=== PATIENT | female | born 1975 | race Caucasian/White ===

== ENCOUNTER 2025-01-31 14:53 | Emergency (ER) | payer BC, SELFPAY ==
--- OUTSIDE RECORDS SUMMARY | 2025-01-31 14:57 | XMS REPORT | Continuity of Care Document ---
Author Name Unknown Address [address] [facility] [address] [place] [address] Organization [facility] Address [address] [facility] [address] [place] [address] Care Team Providers Care Flatwork Catcher Name Role Phone Edna Contreras Primary Care Physician [phone] ANDREW CARTWRIGHT Attending Clinician Unavailable Andrew Cartwright MD Attending Clinician [phone] Unknown, Attending Attending Clinician Unavailab CONCHITA Sharif Attending Clinician Unavailable Conchita Augustin MD Attending Clinician [phone] Nurse, [facility] Attending Clinician Un available Jeromy Bedoya Attending Clinician Provider, [facility] Attending Clinician Unavailable JEROMY RICCI Attending Clinician Unavailab le Doctor Unassigned, [place] Attending Clinician U navailCONCHITA Hong Admitting Clinician Unavailable Payers Payer Name Policy Type Policy Number Effective Date Expirati on Date Source [facility] - OUT OF STATE [id number] 2021 00:00:00 Problems Condition Name Condition Details Condition Category Status Onset Date Resolution Date Last Treatment Date Treating Clinician Comments Source No known active problems No known active problems Disease [facility] Allergies, Adverse Reactions, Alerts Allergy Name Allergy Type Status Severity Reaction(s) Onset Date Inactive Date Treating Clinician Comments Source NO KNOWN ALLERGIE S Drug Class Active [facility] Social History Social Habit Start Date Stop Date Quantity Comments Source Exposure to SARS-CoV-2 (event) 2022-08-29 00:00:00 2022-09-08 10:59:00 Not sure [facility] Sex Assigned At 1975 00:00:00 1975 00:00:00 [facility] Smoking Status Start Date Stop Date Source Tobacco smoking consumption unknown [facility] Medications Ordered Medication Name Filled Medication Name Start Date Stop Date Current Medication? Ordering Clinician Indication Dosage Frequency Signature (SIG) Comments Components Source atenolol 100 mg tablet 01-03 00:00: 00 Yes 1mg [facility] metformin ER 500 mg 24 hr tablet,exte nded release (gastric retention) 01-03 00:00: 00 Yes 2mg [facility] atorvastati n 40 mg tablet 01-03 00:00: 00 Yes 1mg [facility] atenolol 100 mg tablet 10-25 00:00: 00 Yes 1mg [facility] metformin ER 500 mg 24 hr tablet,exte nded release (gastric retention) 10-25 00:00: 00 Yes 2mg [facility] atorvastati n 40 mg tablet 10-25 00:00: 00 Yes 1mg [facility] atenolol 100 mg tablet 09-13 00:00: 00 Yes 1mg [facility] metformin ER 500 mg 24 hr tablet,exte nded release (gastric retention) 2023-05 00:00: 00 Yes 2mg [facility] atorvastati n 40 mg tablet 2023-05 00:00: 00 Yes 1mg [facility] metformin ER 1,000 mg 24 hr tablet,exte nded release (gastric reten.) 2023-05 00:00: 00 Yes 1mg [facility] atorvastati n 40 mg tablet 2023-05 00:00: 00 Yes 1mg [facility] clotrimazol e 1 % topical cream 2023-05 00:00: 00 Yes 1% [facility] atenolol 100 mg tablet 2023-05 00:00: 00 Yes 1mg [facility] TAKE DIRECTED BY PACKAGE INSTRUCTION S. 2022-05 00:00: 00 Yes [facility] TAKE ONE (1) TABLET(S) BY MOUTH ONCE A DAY WITH FOOD FOR 7 DAYS, THEN TAKE ONCE A DAY NEEDED. 2022-05 00:00: 00 Yes [facility] TAKE ONE (1) TABLET(S) BY MOUTH ONCE A DAY. 2022-05 00:00: 00 Yes [facility] TAKE ONE (1) TABLET(S) BY MOUTH ONCE A DAY AT BEDTIME FOR 7 TO 10 DAYS, THEN TAKE ONE (1) TAB AT BEDTIME NEEDED. 2022-05 00:00: 00 Yes [facility] ketorolac (TORADOL) injection 30 mg 09-08 17:30: 00 09-08 16:26 :00 No [id number] 30mg [facility] TAKE ONE (1) TABLET(S) BY MOUTH EVERY SIX HOURS NEEDED FOR PAIN. 09-08 00:00: 00 Yes [facility] TAKE ONE (1) CAPSULE(S) BY MOUTH THREE TIMES A DAY NEEDED FOR MUSCLE SPASMS. 09-08 00:00: 00 Yes [facility] tiZANidine 2 mg capsule 09-08 00:00: 00 Yes [id number] 2mg Take 1 capsule by mouth 3 (three) times daily as needed for Muscle Spasms. [facility] ibuprofen 600 mg tablet 09-08 00:00: 00 Yes [id number] 4 600mg Take 1 tablet by mouth every 6 (six) hours as needed for Pain (scale 1-3) or Pain (scale 4-6). [facility] atenoloL 100 mg tablet 07-07 00:00: 00 Yes 100mg Take 1 tablet by mouth in the morning. [facility] ketorolac (TORADOL) injection 30 mg 12-11 04:00: 00 12-11 03:10 :00 No 30mg 30 mg, Slow IV Push, ONCE, 1 dose, On Mon12/10/21 at 2300, Routine [facility] ketorolac 10 mg tablet 12-11 00:00: 00 Yes [id number] 10mg Take 1 tablet by mouth every 6 (six) hours as needed for Pain (scale 7-10). [facility] methocarbam oL 750 mg tablet 12-11 00:00: 00 Yes [id number] 750mg Take 1 tablet by mouth every 6 (six) hours as needed for Pain (scale 7-10) (MUSCLE SPASM). [facility] No known medications 12-10 21:36: 36 No No known medication s [facility] No known medications 12-10 19:52: 00 No No known medication s [facility] Vital Signs Vital Name Observation Time Observation Value Comments S rena Body weight 2022-09-08 16:10:00 110.819 kg [facility] BMI 2022-09-08 16:10:00 37.15 kg/m2 [facility] Oxygen saturation in Arterial blood by Pulse oximetry 2022-09-08 16:10:00 98 /min [facility] Systolic blood pressure 2022-09-08 16:10:00 147 mm[Hg] [facility] Diastolic blood pressure 2022-09-08 16:10:00 92 mm[Hg] [facility] Heart rate 2022-09-08 16:10:00 82 /min [facility] Body temperature 2022-09-08 16:10:00 36.89 [facility] Respiratory rate 2022-09-08 16:10:00 18 /min [facility] Body height 2022-09-08 16:10:00 172.7 cm [facility] Systolic blood pressure 2021-12-11 05:00:00 143 mm[Hg] [facility] Diastolic blood pressure 2021-12-11 05:00:00 95 mm[Hg] [facility] acute hospital Heart rate 2021-12-11 05:00:00 76 /min [facility] Respiratory rate 2021-12-11 05:00:00 18 /min [facility] Oxygen saturation in Arterial blood by Pulse oximetry 2021-12-11 05:00:00 99 /min [facility] Body temperature 2021-12-11 01:29:00 36.83 Man[facility] Body weight 2021-12-11 01:29:00 106.142 kg [facility] BMI 2021-12-11 01:29:00 35.58 kg/m2 [facility] Systolic blood pressure 2021-12-11 01:29:00 147 mm[Hg] [facility] Diastolic blood pressure 2021-12-11 01:29:00 89 mm[Hg] [facility] hospital Heart rate 2021-12-11 01:29:00 98 /min [facility] Body temperature 2021-12-11 01:29:00 37.39 [facility] Respiratory rate 2021-12-11 01:29:00 18 /min [facility] Body height 2021-12-11 01:29:00 172.7 cm [facility] Body weight 2021-12-11 01:29:00 106.232 kg [facility] BMI 2021-12-11 01:29:00 35.61 kg/m2 [facility] Oxygen saturation in Arterial blood by Pulse oximetry 2021-12-11 01:29:00 99 /min [facility] BP Systolic 2025-01-03 16:24:00 133 mm[Hg] Step hen F Frandy BP Diastolic 2025-01-03 16:24:00 86 mm[Hg] Jul[place] phen F Frandy Weight Measured 2025-01-03 16:24:00 233.00 pounds Den F Frandy Height Measured 2025-01-03 16:24:00 68.19 inches Den F Frandy Body Temperature 2025-01-03 16:24:00 96.40 degrees Den F Frandy Heart Rate 2025-01-03 16:24:00 89.00 /min Susana en F Frandy Respiratory Rate 2025-01-03 16:24:00 18.00 /min Den F Frandy BP Systolic 2024-10-25 10:52:00 133 mm[Hg] Step hen F Frandy BP Diastolic 2024-10-25 10:52:00 79 mm[Hg] Julito phen F Frandy Weight Measured 2024-10-25 10:52:00 236.00 pounds Den F Frandy Height Measured 2024-10-25 10:52:00 68.19 inches Den F Frandy Body Temperature 2024-10-25 10:52:00 97.90 degrees Den F Frandy Heart Rate 2024-10-25 10:52:00 73.00 /min Susana en F Frandy Respiratory Rate 2024-10-25 10:52:00 18.00 /min Den F Frandy BP Systolic 2024-10-25 10:47:00 133 mm[Hg] Step hen F Frandy BP Diastolic 2024-10-25 10:47:00 79 mm[Hg] Julito phen F Frandy Weight Measured 2024-10-25 10:47:00 236.00 pounds Den F Frandy Height Measured 2024-10-25 10:47:00 68.19 inches Den F Frandy Body Temperature 2024-10-25 10:47:00 97.90 degrees Den F Frandy Heart Rate 2024-10-25 10:47:00 73.00 /min Susana en F Frandy Respiratory Rate 2024-10-25 10:47:00 18.00 /min Den F Frandy BP Systolic 2024-04-22 10:23:00 154 mm[Hg] Step hen F Frandy BP Diastolic 2024-04-22 10:23:00 81 mm[Hg] Julito phen F Frandy Weight Measured 2024-04-22 10:23:00 237.80 pounds Den F Frandy Height Measured 2024-04-22 10:23:00 68.19 inches Den F Frandy Body Temperature 2024-04-22 10:23:00 97.80 degrees Den F Frandy Heart Rate 2024-04-22 10:23:00 56.00 /min Susana en F Frandy Respiratory Rate 2024-04-22 10:23:00 18.00 /min Den F Frandy BP Systolic 2024-03-22 15:23:00 131 mm[Hg] Step hen F Frandy BP Diastolic 2024-03-22 15:23:00 83 mm[Hg] Jul[place] phen F Frandy Weight Measured 2024-03-22 15:23:00 242.60 pounds Den F Frandy Height Measured 2024-03-22 15:23:00 68.19 inches [facility] Body Temperature 2024-03-22 15:23:00 97.20 degrees Den Wise Heart Rate 2024-03-22 15:23:00 97.00 /min Susana en F Frandy Respiratory Rate 2024-03-22 15:23:00 18.00 /min Denmarija Wise Heart Rate 2024-03-18 14:23:00 75.00 /min Susana en F Frandy Respiratory Rate 2024-03-18 14:23:00 18.00 /min [facility] BP Systolic 2024-03-18 14:23:00 134 mm[Hg] Step hen Caridad Wise BP Diastolic 2024-03-18 14:23:00 63 mm[Hg] Julito Wise Weight Measured 2024-03-18 14:23:00 243.80 pounds Den Wise Height Measured 2024-03-18 14:23:00 68.19 inches [facility] Body Temperature 2024-03-18 14:23:00 98.50 degrees [facility] Procedures Procedure Date / Time Performed Performing Clinicia n Source EKG-12 LEAD 2021-12-11 05:17:06 Conchita Augustin [facility] MAGNESIUM 2021-12-11 03:13:00 Conchita Augustin [facility] TROPONIN I 2021-12-11 03:13:00 Conchita Augustin [facility] COMP. METABOLIC PANEL (01724) 2021-12-11 03:13:00 Conchita Augustin [facility] CBC WITH DIFF 2021-12-11 03:13:00 Conchita Augustin [facility] XR CHEST 1 VW 2021-12-11 02:18:53 Conchita Augustin [facility] CONSENT/REFUSAL FOR DIAGNOSIS AND TREATMENT 2021-12-11 00:48:06 Doctor Unassigned, [place] [facility] ASSIGNMENT OF BENEFITS 2021-12-11 00:47:56 Docto r Unassigned, [place] [facility] Encounters Start Date/Time End Date/Time Encounter Type Admission Type Attending [facility] Care Department Encounter ID Source 2025-01-31 13:28:44 2025-01-31 13:28:44 Outpatient SFA SFA [id number] [facility] 2025-01-03 16:21:34 2025-01-03 16:21:34 Outpatient SFA SFA [id number] [facility] 2025-01-03 00:00:00 2025-01-03 00:00:00 Outpatient Visit SFA [id number] Den Wise 2024-10-25 00:00:00 2024-10-25 00:00:00 Outpatient Visit SFA [id number] Den [facility] 2024-09-06 15:13:51 2024-09-06 15:13:51 Outpatient SFA SFA [id number] Den Wise 2024-05-02 15:58:42 2024-05-02 15:58:42 Outpatient SFA SFA [id number] [facility] 2024-04-22 09:58:28 2024-04-22 09:58:28 Outpatient SFA [id number] [id number] Den Wise 2024-04-22 00:00:00 2024-04-22 00:00:00 Outpatient Visit SFA [id number] Den Wise 2024-03-22 15:19:13 2024-03-22 15:19:13 Outpatient SFA SFA [id number] Den Wise 2024-03-22 00:00:00 2024-03-22 00:00:00 Outpatient Visit SFA [id number] Den Wise 2024-03-19 08:00:55 2024-03-19 08:00:55 Outpatient SFA SFA [id number] Den Wise 2024-03-18 13:57:38 2024-03-18 13:57:38 Outpatient SFA [id number] Den Wise 2024-03-18 00:00:00 2024-03-18 00:00:00 Outpatient Visit [id number] Den Wise 2023-07-20 13:39:13 2023-07-20 13:39:13 Outpatient SFA [id number] Den Wise 2022-09-08 11:00:00 2022-09-08 11:25:08 Outpatient R ANDREW CARTWRIGHT [facility] [id number] [facility] 2022-09-08 11:00:00 2022-09-08 11:25:08 Urgent Care Andrew Cartwright Unknown, Attending [facility] [id number] [facility] 2021-12-10 20:22:00 2021-12-11 00:19:00 Emergency X CONCHITA AUGUSTIN [facility] ERT [id number] [facility] 2021-12-10 20:22:00 2021-12-11 00:19:00 Emergency Conchita Augustin S [facility] [id number] [facility] 2021-12-10 20:00:00 2021-12-10 20:20:00 Nurse Visit Nurse, [facility] Jeromy Ricci [facility] [id number] [facility] 2021-12-10 19:40:00 2021-12-10 20:00:00 Urgent Care Provider, [facility] Jeromy Ricci [facility] [id number] [facility] 2021-12-10 19:40:00 2021-12-10 19:40:00 Outpatient R JEROMY RICCI [facility] [id number] [facility] 2021-12-10 00:00:00 2021-12-10 00:00:00 Orders Only Doctor Unassigned, [place] [facility] [id number] [facility] Results Test Description Test Time Test Comments Results Result Co mments Source Den WiseCOMPREHENSIVE METABOLIC [id number] 00:00:00* Test Item Value Reference Range Interpretation Comme nts GLUCOSE (test code = 2217) 333 MG/DL BUN (test code = 2208) 9 MG/DL CREATININE (test code = 2214) 0.39 MG/DL eGFR (2020 CKD-EPI) (test code = 49244) 124 ML/MIN/1.73 CALC BUN/CREAT (test code = 2235) 23 RATIO SODIUM (test code = 2231) 132 MEQ/L POTASSIUM (test code = 2228) 4.5 MEQ/L CHLORIDE (test code = 2215) 94 MEQ/L CARBON DIOXIDE (test code = 2206) 25 MEQ/L CALCIUM (test code = 2209) 9.7 MG/DL PROTEIN, TOTAL (test code = 2229) 7.4 G/DL ALBUMIN (test code = 2201) 4.2 G/DL CALC GLOBULIN (test code = 2240) 3.2 G/DL CALC A/G RATIO (test code = 2234) 1.3 RATIO BILIRUBIN, TOTAL (test code = 2207) 0.3 MG/DL ALKALINE PHOSPHATASE (test code = 2204) 109 U/L AST (test code = 2218) 25 U/L ALT (test code = 2219) 30 U/L Den WiseLIPID [id number] 00:00:00* Test Item Value Reference Range Interpretation Comme nts CHOLESTEROL (test code = 2210) 215 MG/DL TRIGLYCERIDES (test code = 2232) 250 MG/DL HDL CHOLESTEROL (test code = 2220) 31 MG/DL CALC LDL CHOL (test code = 2237) 146 MG/DL RISK RATIO LDL/HDL (test cod e = 2238) 4.71 RATIO Den WiseHEMOGLOBIN [id number] 00:00:00* Test Item Value Reference Range Interpretation Comme nts HEMOGLOBIN A1c (test code = 10274) 11.4 % Den WiseCOMPREHENSIVE METABOLIC [id number] 00:00:00* Test Item Value Reference Range Interpretation Comme nts GLUCOSE (test code = 2217) 333 MG/DL BUN (test code = 2208) 9 MG/DL CREATININE (test code = 2214) 0.39 MG/DL eGFR (2020 CKD-EPI) (test code = 98420) 124 ML/MIN/1.73 CALC BUN/CREAT (test code = 2235) 23 RATIO SODIUM (test code = 2231) 132 MEQ/L POTASSIUM (test code = 2228) 4.5 MEQ/L CHLORIDE (test code = 2215) 94 MEQ/L CARBON DIOXIDE (test code = 2206) 25 MEQ/L CALCIUM (test code = 2209) 9.7 MG/DL PROTEIN, TOTAL (test code = 2229) 7.4 G/DL ALBUMIN (test code = 2201) 4.2 G/DL CALC GLOBULIN (test code = 2240) 3.2 G/DL CALC A/G RATIO (test code = 2234) 1.3 RATIO BILIRUBIN, TOTAL (test code = 2207) 0.3 MG/DL ALKALINE PHOSPHATASE (test code = 2204) 109 U/L AST (test code = 2218) 25 U/L ALT (test code = 2219) 30 U/L Den WiseLIPID [id number] 00:00:00* Test Item Value Reference Range Interpretation Comme nts CHOLESTEROL (test code = 2210) 215 MG/DL TRIGLYCERIDES (test code = 2232) 250 MG/DL HDL CHOLESTEROL (test code = 2220) 31 MG/DL CALC LDL CHOL (test code = 2237) 146 MG/DL RISK RATIO LDL/HDL (test cod e = 2238) 4.71 RATIO Den F AustinHEMOGLOBIN [id number] 00:00:00* Test Item Value Reference Range Interpretation Comme nts HEMOGLOBIN A1c (test code = 59735) 11.4 % Den Mclean AustinCOMPREHENSIVE METABOLIC [id number] 00:00:00* Test Item Value Reference Range Interpretation Comme nts GLUCOSE (test code = 2217) 333 MG/DL BUN (test code = 2208) 9 MG/DL CREATININE (test code = 2214) 0.39 MG/DL eGFR (2020 CKD-EPI) (test code = 05317) 124 ML/MIN/1.73 CALC BUN/CREAT (test code = 2235) 23 RATIO SODIUM (test code = 2231) 132 MEQ/L POTASSIUM (test code = 2228) 4.5 MEQ/L CHLORIDE (test code = 2215) 94 MEQ/L CARBON DIOXIDE (test code = 2206) 25 MEQ/L CALCIUM (test code = 2209) 9.7 MG/DL PROTEIN, TOTAL (test code = 2229) 7.4 G/DL ALBUMIN (test code = 2201) 4.2 G/DL CALC GLOBULIN (test code = 2240) 3.2 G/DL CALC A/G RATIO (test code = 2234) 1.3 RATIO BILIRUBIN, TOTAL (test code = 2207) 0.3 MG/DL ALKALINE PHOSPHATASE (test code = 2204) 109 U/L AST (test code = 2218) 25 U/L ALT (test code = 2219) 30 U/L Den Mclean AustinLIPID [id number] 00:00:00* Test Item Value Reference Range Interpretation Comme nts CHOLESTEROL (test code = 2210) 215 MG/DL TRIGLYCERIDES (test code = 2232) 250 MG/DL HDL CHOLESTEROL (test code = 2220) 31 MG/DL CALC LDL CHOL (test code = 2237) 146 MG/DL RISK RATIO LDL/HDL (test cod e = 2238) 4.71 RATIO Den Mclean AustinHEMOGLOBIN [id number] 00:00:00* Test Item Value Reference Range Interpretation Comme nts HEMOGLOBIN A1c (test code = 98238) 11.4 % Den Mclean AustinCOMPREHENSIVE METABOLIC [id number] 00:00:00* Test Item Value Reference Range Interpretation Comme nts GLUCOSE (test code = 2217) 333 MG/DL BUN (test code = 2208) 9 MG/DL CREATININE (test code = 2214) 0.39 MG/DL eGFR (2020 CKD-EPI) (test code = 91998) 124 ML/MIN/1.73 CALC BUN/CREAT (test code = 2235) 23 RATIO SODIUM (test code = 2231) 132 MEQ/L POTASSIUM (test code = 2228) 4.5 MEQ/L CHLORIDE (test code = 2215) 94 MEQ/L CARBON DIOXIDE (test code = 2206) 25 MEQ/L CALCIUM (test code = 2209) 9.7 MG/DL PROTEIN, TOTAL (test code = 2229) 7.4 G/DL ALBUMIN (test code = 2201) 4.2 G/DL CALC GLOBULIN (test code = 2240) 3.2 G/DL CALC A/G RATIO (test code = 2234) 1.3 RATIO BILIRUBIN, TOTAL (test code = 2207) 0.3 MG/DL ALKALINE PHOSPHATASE (test code = 2204) 109 U/L AST (test code = 2218) 25 U/L ALT (test code = 2219) 30 U/L Den WiseLIPID [id number] 00:00:00* Test Item Value Reference Range Interpretation Comme nts CHOLESTEROL (test code = 2210) 215 MG/DL TRIGLYCERIDES (test code = 2232) 250 MG/DL HDL CHOLESTEROL (test code = 2220) 31 MG/DL CALC LDL CHOL (test code = 2237) 146 MG/DL RISK RATIO LDL/HDL (test cod e = 2238) 4.71 RATIO Den Mclean FrandyTROPONIN [id number] 03:51:49* Test Item Value Reference Range Interpretation Comments TROPONIN I (test code = 5440527495) 0.002 ng/mL See_Comment [Automated message] The system which generated this result transmitted reference range: <=0.034. The reference range was not used to interpret this result as normal/abnormal. DOTTIE (test code = DOTTIE) Reference (Normal) Range (defined by the 99th percentile reference limit): <= 0.034 ng/mL Note: Cardiac troponin begins to rise 3-4 hours after the onset of ischemia. Repeat in 4-6 hours if the sample was drawn within 3-4 hours of the onset of the symptom and found normal. Diagnosis of myocardial injury is made with acute changes in cTn concentrations with at least one serial sample above the 99th percentile upper reference limit (URL), taken together with the patient's clinical presentation. Biotin has been reported to cause a negative bias, interpret results relative to patient's use of biotin. Lab Interpretation (test code = 33179-4) [facility] 03:42:05* Test Item Value Reference Range Interpretation Comme nts MAGNESIUM (test code = 1128600624) 1.5 mg/dL 1.7-2.4 L Lab Interpretation (test cod e = 08759-6) [facility] (30724)2021-12-11 03:41:45* Test Item Value Reference Range Interpretation Comme nts NA (test code = 9667742802) 138 mmol/L 135-145 K (test code = 4946124537) 4.1 mmol/L 3.5-5 CL (test code = 1125291116) 100 mmol/L 98-108 CO2 TOTAL (test code = 0674506077) 27 mmol/L 23-31 AGAP (test code = 2644438185) 2-16 BUN (test code = 6950231855) 10 mg/dL 7-23 GLUCOSE (test code = 6373720944) 106 mg/dL 70-110 CREATININE (test code = 2924657151) 0.40 mg/dL 0.5-1.04 L TOTAL BILI (test code = 2502304922) 0.4 mg/dL 0.1-1.1 CALCIUM (test code = 6293783877) 9.8 mg/dL 8.6-10.6 T PROTEIN (test code = 7061434498) 7.4 g/dL 6.3-8.2 ALBUMIN (test code = 8454350629) 4.2 g/dL 3.5-5 ALK PHOS (test code = 7505048034) 74 U/L 34-122 ALTv (test code = 1742-6) 20 U/L 5-35 AST(SGOT) (test code = 5372895227) 24 U/L 13-40 eGFR (test code = 0282614115) mL/min/1.73m2 DOTTIE (test code = DOTTIE) Association of Glomerular Filtration Rate (GFR) and Staging of Kidney Disease* + --+ --+ ------+| GFR (mL/min/1.73 m2) ?| With Kidney Damage ?| ?Without Kidney Damage+ --------+ --------+ +| ?>90 ?| ?Stage one ?| ? Normal ?+ ---+ ---+ -------+| ?60-89 ?| ?Stage two ?| ? Decreased GFR ? + --+ --+ ------+| ?30-59 ?| ?Stage three ?| ? Stage three ? + --+ --+ ------+| ?15-29 ?| ?Stage four ? | ? Stage four ?+ ---+ ---+ -------+| ?<15 (or dialysis) ? ?| ?Stage five ? | ? Stage five ?+ ---+ ---+ -------+ *Each stage assumes the associated GFR level has been in effect for at least three months. ?Stages 1 to 5, with or without kidney disease, indicate chronic kidney disease. Notes: Determination of stages one and two (with eGFR >59mL/min/1.73 m2) requires estimation of kidney damage for at least three months as defined by structural or functional abnormalities of the kidney, manifested by either:Pathological abnormalities or Markers of kidney damage (including abnormalities in the composition of the blood or urine or abnormalities in imaging tests). Lab Interpretation (test code = 00109-5) Abnormal [facility] WITH [id number] 03:31:39* Test Item Value Reference Range Interpretation Comme nts WBC (test code = 6690-2) See_Comment [Automated [employer]] The system which generated this result transmitted reference range: 4.30 - 11.10 10*3/?L. The reference range was not used to interpret this result as normal/abnormal. RBC (test code = 789-8) See_Comment [Automated [employer]] The system which generated this result transmitted reference range: 3.93 - 5.25 10*6/?L. The reference range was not used to interpret this result as normal/abnormal. HGB (test code = 718-7) 14.1 g/dL 11.6-15 HCT (test code = 4544-3) 40.7 % 35.7-45.2 MCV (test code = 787-2) 85.9 fL 80.6-95.5 MCH (test code = 785-6) 29.7 pg 25.9-32.8 MCHC (test code = 786-4) 34.6 g/dL 31.6-35.1 RDW-SD (test code = 74721-9) 39.5 fL 39-49.9 RDW-CV (test code = 788-0) 12.6 % 12-15.5 PLT (test code = 777-3) See_Comment [Automated messa ge] The system which generated this result transmitted reference range: 166 - 358 10*3/?L. The reference range was not used to interpret this result as normal/abnormal. MPV (test code = 08628-9) 12.6 fL 9.5-12.9 NRBC/100 WBC (test code = 7413301844) See_Comment [Automated [employer] ssage] The system which generated this result transmitted reference range: 0.0 - 10.0 /100 WBCs. The reference range was not used to interpret this result as normal/abnormal. NRBC x10^3 (test code = 6725423124) See_Comment [Automated messa ge] The system which generated this result transmitted reference range: 10*3/?L. The reference range was not used to interpret this result as normal/abnormal. GRAN MAT (NEUT) % (test code = 770-8) 57.8 % IMM GRAN % (test code = [id number]) 0.30 % LYMPH % (test code = 736-9) 34.1 % MONO % (test code = 5905-5) 6.0 % EOS % (test code = 713-8) 1.4 % BASO % (test code = 706-2) 0.4 % GRAN MAT x10^3(ANC) (test code = [id number]) 5.61 10*3/uL 1.88-7.09 IMM GRAN x10^3 (test code = [id number]) 0.03 10*3/uL 0-0.06 LYMPH x10^3 (test code = 731-0) 3.31 10*3/uL 1.32-3.29 H MONO x10^3 (test code = 742-7) 0.58 10*3/uL 0.33-0.92 EOS x10^3 (test code = 711-2) 0.14 10*3/uL 0.03-0.39 BASO x10^3 (test code = 704-7) 0.04 10*3/uL 0.01-0.07 Lab Interpretation (test code = 89636-0) Abnormal [facility] Notes Date/Time Note Provider Source [facility]2025-06-13 00:00:00 [facility]2024-12-09 00:00:00 [facility]2024-11-08 00:00:00 [facility]2024-11-04 00:00:00 [facility]"
--- NOTE | 2025-01-31 15:58 | RAD REPORT ---
EXAM: Knee Right 3 View INDICATION: PAIN COMPARISON: None FINDINGS: No acute fracture. No significant knee effusion. Slight medial lateral compartment narrowing with small marginal osteophytes. Mild patellofemoral comp artment spurring. Enthesophytes at the patella. Other: N/A IMPRESSION: No acute osseous abnormality involving the imaged knee.
--- NOTE | 2025-01-31 16:05 | EDPHYS ---
Physician Documentation [facility] Name: Rio Espinosa Age: 49 yrs Sex: Female : 1975 Arrival Date: 01/31/2025 Time: 14:53 Bed 17 Private MD: ED Physician Mj Christine HPI: 01/31 15:22 This 49 yrs old Female presents to ER via Unassigned with complaints of Knee Injury - ms3 RT. 15:22 49-year-old female with past medical history of diabetes, hypertension presents to the [facility] emergency department for right knee pain that occurred after lifting a 5 gallon bucket and twisting. Patient states she cannot put pressure on her knee as it is painful. Patient denies pain without putting pressure on it. Patient denies alleviating factors. Patient states prior to coming to the emergency department saw her primary care physician who sent her to the emergency department.. 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 - Infectious Disease History:: Denies. - Social history:: Smoking status: Patient reports the use of cigarette tobacco products, smokes one-half pack cigarettes per day, Reported history of juuling and/or vaping. ROS: 15:22 Constitutional: Negative for fever, and chills. Cardiovascular: Negative for chest ms3 pain, and palpitations. Respiratory: Negative for shortness of breath, cough, wheezing, and pleuritic chest pain, Abdomen/GI: Negative for abdominal pain, nausea, vomiting, diarrhea, and constipation, 15:22 MS/extremity: Positive for pain, of the Right knee, Exam: 15:22 Constitutional: This is a well developed, well nourished patient who is awake, alert, ms3 and in no acute distress. Cardiovascular: Regular rate and rhythm with a normal S1 and S2. No gallops, murmurs, or rubs. Normal PMI, no JVD. No pulse deficits. Respiratory: Lungs have equal breath sounds bilaterally, clear to auscultation and percussion. No rales, rhonchi or wheezes noted. No increased work of breathing, no retractions or nasal flaring. Abdomen/GI: Soft, non-tender, with normal bowel sounds. No distension or tympany. No guarding or rebound. No evidence of tenderness throughout. Skin: Warm, dry with normal turgor. Normal color with no rashes, no lesions, and no evidence of cellulitis. 15:22 Musculoskeletal/extremity: Extremities: noted in the Right knee: pain, There is no evidence of decreased ROM, swelling, tenderness, Vital Signs: 15:26 BP 120 / 66; Pulse 81; Resp 16; Temp 98.2; Pulse Ox 98% on R/A; Weight 105.69 kg; dd2 Height 5 ft. 8 in. ; Pain 5/10; 16:10 BP 122 / 64; Pulse 82; Resp 10; Temp 98.2; Pulse Ox 100% ; kj2 15:26 Body Mass Index 35.43 (105.69 kg, 172.72 cm) dd2 15:26 Pain Scale: Adult dd2 MDM: 15:21 Medical Screening Exam initiated ms3 15:22 Differential diagnosis: closed fracture, contusion, Ligamentous injury. ms3 16:05 Data reviewed: vital signs, nurses notes, radiologic studies, and as a result, I will ms3 discharge patient. I considered the following discharge prescriptions or medication management in the emergency department See prescription. Independent interpretation of the following test(s) in the Emergency Department X-Ray: My interpretation is Right knee x-ray images reviewed by me do not reveal fracture. Counseling: I had a detailed discussion with the patient and/or guardian regarding the historical points, exam findings, and any diagnostic results supporting the discharge/admit diagnosis, radiology results, the need for outpatient follow up, to return to the emergency department if symptoms worsen or persist or if there are any questions or concerns that arise at home. Special discussion: I discussed with the patient/guardian in detail that at this point there is no indication for admission to the hospital. It is understood, however, that if the symptoms persist or worsen the patient needs to return immediately for re-evaluation. ED course: Discussed x-ray findings with patient. Patient to follow-up with Dr. Montero in 2 to 3 days. All questions were answered. Return precautions were discussed include worsening symptoms, or any other concerns. On reevaluation patient is alert and oriented x 4, no apparent distress, nontoxic-appearing, speaking full sentences. No signs of compartment syndrome present. 01/31 15:21 Order name: Knee Right 3 View XRAY; Complete Time: 15:59 ms3 01/31 15:21 Order name: Knee Immobilizer ms3 01/31 15:21 Order name: Crutches ms3 Administered Medications: No medications were administered Disposition Summary: 01/31/25 16:04 Discharge Ordered Notes: Location: Home ms3 Condition: Stable ms3 Diagnosis - Pain in right knee ms3 Followup: ms3 - With: Vinny Montero MD - When: 2 - 3 days - Reason: Recheck today's complaints Discharge Instructions: - Discharge Summary Sheet ms3 - Acute Knee Pain, Adult ms3 Forms: - Medication Reconciliation Form ms3 - Antibiotic Education ms3 - Prescription Opioid Use ms3 - Patient Portal Instructions ms3 - Leadership Thank You Letter ms3 Prescriptions: - Ibuprofen 600 mg Oral Tablet - take 1 tablet ORAL route every 6 hours As needed take with food; 30 tablet; ms3 Refills: 0, Product Selection Permitted Signatures: Dispatcher [employer] EDMS Mj Christine, DO ms3 Chayito Goodrich, RN RN kj2 ROBERT PETERSON RN RN dd2 Corrections: (The following items were deleted from the chart) 15:22 15:22 Knee Right 3 View+RAD.RAD.BRZ ordered. EDMS EDMS
--- NOTE | 2025-01-31 16:05 | ER ---
Nurse's Notes [facility] Name: Rio Espinosa Age: 49 yrs Sex: Female : 1975 Arrival Date: 01/31/2025 Time: 14:53 Bed 17 Private MD: Diagnosis: Pain in right knee Presentation: 01/31 15:26 Chief complaint: Patient states: SHE WAS PICKING UP A CASE OF PAINT, FELT RT KNEE dd2 "SNAP" AND UNABLE TO PUT PRESSURE ON RT LEG AND RT FOOT TINGLING. OCCURRED AT APPROX 11AM. Coronavirus screen: At this time, the client does not indicate any symptoms associated with coronavirus-19. Ebola Screen: No symptoms or risks identified at this time. Initial Sepsis Screen: Does the patient meet any 2 criteria? No. Patient's initial sepsis screen is negative. Does the patient have a suspected source of infection? No. Patient's initial sepsis screen is negative. Risk Assessment: Do you want to hurt yourself or someone else? Patient reports no desire to harm self or others. Onset of symptoms was January 31, 2025 at 11:00. 15:26 Method Of Arrival: Wheelchair dd2 15:26 Acuity: MARTÍN 4 dd2 Triage Assessment: 15:28 General: Appears in no apparent distress. uncomfortable, Behavior is calm, cooperative, dd2 appropriate for age. Pain: Complains of pain in right knee. Musculoskeletal: Reports pain in right knee. 16:20 Injury Description: right knee. 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 - Infectious Disease History:: Denies. - Social history:: Smoking status: Patient reports the use of cigarette tobacco products, smokes one-half pack cigarettes per day, Reported history of juuling and/or vaping. Screenin:04 [facility] ED Fall Risk Assessment (Adult) History of falling in the last 3 months, kj2 including since admission No falls in past 3 months (0 pts) Confusion or Disorientation No (0 pts) Intoxicated or Sedated No (0 pts) Impaired Gait Yes (1 pt) Mobility Assist Device Used Yes (1 pt) Altered Elimination No (0 pt) Score/Fall Risk Level 0 - 2 = Low Risk Maintained a safe environment, Hourly rounding (assess needs \\T\\ fall precautionary measures) done. Abuse screen: Denies threats or abuse. Denies injuries from another. Nutritional screening: No deficits noted. Tuberculosis screening: No symptoms or risk factors identified. Assessment: 15:56 Reassessment: Patient and/or family updated on plan of care and expected duration. Pain ll1 level reassessed. 16:01 General: Appears in no apparent distress. Behavior is cooperative. Pain: Complains of kj2 pain in right knee. Neuro: Level of Consciousness is awake, alert, obeys commands, Oriented to person, place, time. Cardiovascular: Patient's skin is warm and dry. Respiratory: Airway is patent Respiratory effort is even, unlabored. GI: No signs and/or symptoms were reported involving the gastrointestinal system. : No signs and/or symptoms were reported regarding the genitourinary system. Vital Signs: 15:26 BP 120 / 66; Pulse 81; Resp 16; Temp 98.2; Pulse Ox 98% on R/A; Weight 105.69 kg; dd2 Height 5 ft. 8 in. ; Pain 5/10; 16:10 BP 122 / 64; Pulse 82; Resp 10; Temp 98.2; Pulse Ox 100% ; kj2 15:26 Body Mass Index 35.43 (105.69 kg, 172.72 cm) dd2 15:26 Pain Scale: Adult dd2 ED Course: 15:08 Patient arrived in ED. cj3 15:09 Mj Christine DO is Attending Physician. ms3 15:28 Triage completed. dd2 15:28 Arm band placed on right wrist. dd2 15:56 Knee Right 3 View XRAY In Process Unspecified. EDMS 15:56 Patient placed in an exam room, on a stretcher. ll1 15:58 Chayito Goodrich RN is Primary Nurse. kj2 16:04 Vinny Montero MD is Referral Physician. ms3 16:05 Patient has correct armband on for positive identification. Bed in low position. Call kj2 light in reach. Adult w/ patient. Provided Education on: call light. 16:20 No provider procedures requiring assistance completed. Patient did not have IV access kj2 during this emergency room visit. Administered Medications: No medications were administered Medication: 16:05 VIS not applicable for this client. kj2 Outcome: 16:04 Discharge ordered by . ms3 16:22 Discharged to home with crutches, with family, kj2 16:22 Condition: stable 16:22 Discharge instructions given to patient, family, Instructed on discharge instructions, follow up and referral plans. Demonstrated understanding of instructions, follow-up care, 16:29 Patient left the ED. kj2 Signatures: Dispatcher [employer] EDMS Ruy Saunders, RN RN ll1 Mj Christine, DO ms3 Chayito Goodrich RN RN kj2 ROBERT PETERSON RN RN dd2 Loretta Durbin 3
[2025-01-31 16:40] VITALS: TEMP 98.2
[2025-01-31 16:41] VITALS: BP 122/64; O2SAT 100
== END 2025-01-31 16:29 | disposition home or self-care (01) ==
LOC: ER 14:53
DX: M25.561 Pain in right knee (principal)
CPT/HCPCS: 99283